=== PATIENT | male | born 1985 | race African-American/Black ===

== ENCOUNTER 2019-01-19 17:06 | Emergency (ER) | payer SELFPAY ==
[~2019-01-19] VITALS: Ht 175.3 cm; Wt 59.7 kg
[2019-01-19 17:14] VITALS: BP 113/66
== END 2019-01-19 18:04 | disposition home or self-care (01) ==
LOC: ED 18:02
DX: N34.2 Other urethritis (principal); R30.0 Dysuria
CPT/HCPCS: 87491; 87591; 96372; 99283; J0696